=== PATIENT | male | born 1985 | race Two or more races ===

== ENCOUNTER 2016-11-22 23:02 | Emergency (ER) | payer MEDICAID ==
[~2016-11-22] VITALS: Ht 162.6 cm; Wt 81.6 kg
[2016-11-22 23:15] VITALS: BP 120/78
[2016-11-22] MEDS ORDERED: KEFLEX500 MG ORAL (23:23)
[2016-11-22 23:35] VITALS: BP 120/78
--- NOTE | 2016-11-23 05:42 | Emergency Room Report ---
History of Present Illness General Chief Complaint: Eye Problems Source: Patient Present Illness HPI Patient is 31-year-old male presented after increased left eye swelling. Patient had a gradual onset of symptoms. Patient reported having increased pain to the left eyelid. He had not been having any fever. He denied any visual changes. He reported having a similar symptoms in the opposite eye. Allergies: Coded Allergies: No Known Allergies (Unverified , 11/22/16) Patient History Past Medical History: see triage record Reviewed Nursing Documentation: PMH: Agreed, PSxH: Agreed Nursing Documentation-PMH Past Medical History: No Stated History Review of Systems All Other Systems: negative except mentioned in HPI Physical Exam Vital Signs Date Time Temp Pulse Resp B/P Pulse Ox O2 Delivery O2 Flow Rate FiO2 11/22/16 23:11 98.1 71 16 120/78 100 Room Air General Appearance: well appearing, no apparent distress, alert, GCS 15 Head: normocephalic, atraumatic Eyes: bilateral eye other - left eyelid swelling and erythema ENT: hearing grossly normal, normal voice Neck: full range of motion, supple Respiratory: no respiratory distress, speaking full sentences Musculoskeletal: no calf tenderness Neurologic: normal gait Psychiatric: mood/affect normal Skin: no rash Medical Decision Making Diagnostic Impression: Primary Impression: Stye ER Course The patient presented for eye swelling. Differential diagnosis included but wasn 't limited to sty, glaucoma, iritis, corneal abrasion, bacterial conjunctivitis , viral conjunctivitis. Patient has a benign exam presents what appears to be a sty The patient is advised to follow up with primary care doctor in 1-2 days. Patient is advised to return if any worsening condition or if any changes in status that are concerning. Last Vital Signs Date Time Temp Pulse Resp B/P Pulse Ox O2 Delivery O2 Flow Rate FiO2 11/22/16 23:35 98.0 71 16 120/78 100 Room Air Status: improved Disposition: HOME, SELF-CARE Condition: Stable Scripts Cephalexin* (KEFLEX*) 500 Mg Capsule 500 MG ORAL EVERY 6 HOURS, #28 CAP 0 Refills Prov: Luis Myles 11/22/16 Referrals: NOT CHOSEN IPA/MD,REFERRING (PCP) Patient Instructions: Luis Duggan Nov 23, 2016 05:42
== END 2016-11-23 00:37 | disposition home or self-care (01) ==
LOC: EMR 11-23 00:02
DX: H00.016 Hordeolum externum left eye, unspecified eyelid (principal); H00.013 Hordeolum externum right eye, unspecified eyelid
CPT/HCPCS: 99283